=== PATIENT | female | born 1950 | race Caucasian/White ===

== ENCOUNTER 2024-06-07 06:47 | Day surgery (SDC) | payer MEDICARE, BC ==
[2024-06-07] MEDS ORDERED: Dexamethasone 4 MG/ML SDV IV ONE (06:48)
[2024-06-07] MEDS ORDERED: Sodium Chloride 0.9% 10 ML Syringe IV ONE (06:48)
[2024-06-07] MEDS ORDERED: Midazolam 1 MG/ML 2 ML SDV IV ONE (06:48)
[2024-06-07] MEDS ORDERED: Ondansetron 4 MG/2 ML SDV IVPUSH PRN (07:00)
[2024-06-07] MEDS ORDERED: Acetaminophen/Codeine 300-30 MG Tab PO PRN (07:00)
[2024-06-07] MEDS ORDERED: Acetaminophen 325 MG Tab PO PRN (07:00)
[2024-06-07] MEDS: Sodium Chloride 0.9% 10 ML Syringe FLUSH PRN (07:17)
[2024-06-07] MEDS: Proparacaine 0.5% Ophth Soln 15 ML Bottle EYELF ONE ×2 (07:26→08:18)
[2024-06-07] MEDS: Moxifloxacin 0.5% Ophth Soln 3 ML Bottle EYELF ONE (07:28)
[2024-06-07] MEDS: Povidone-Iodine 5% Sterile Ophth Soln 30 ML Bottle EYELF ONE ×2 (07:29→08:24)
[2024-06-07] MEDS: Tropicamide 1% Ophth Soln 15 ML Bottle EYELF ONE (07:30)
[2024-06-07] MEDS: Timolol Maleate 0.5% Ophth Soln 5 ML Bottle EYELF ONE (07:31)
[2024-06-07] MEDS: Phenylephrine 10% Ophth Soln 5 ML Bot EYELF ONE (07:31)
[2024-06-07] MEDS: Cataract Ophth Solution EYELF ONE (07:32)
[2024-06-07] MEDS: Diclofenac Sodium 0.1% Ophth Soln 5 ML Bottle EYELF ONE (08:18)
[2024-06-07] MEDS: Dexamethasone/Neomycin/Polymyxin B Ophth Oint 3.5 GM Tube EYELF ONE (08:18)
[2024-06-07] MEDS: Apraclonidine 0.5% Ophth Soln 5 ML Bot EYELF ONE (08:18)
[2024-06-07] MEDS: Lidocaine 1% 30 ML SDV ONE (08:26)
[2024-06-07] MEDS: Vancomycin 500 MG SDV EYELF ONE (08:27)
== END 2024-06-07 09:20 | disposition home or self-care (01) ==
LOC: DL.SDS 06:47
PROVIDERS: ATTEND Ophthalmology
DX: H25.812 Combined forms of age-related cataract, left eye (principal); E66.01 Morbid (severe) obesity due to excess calories; I10 Essential (primary) hypertension; Z87.891 Personal history of nicotine dependence; Z79.899 Other long term (current) drug therapy; Z88.5 Allergy status to narcotic agent; Z68.28 Body mass index [BMI] 28.0-28.9, adult
CPT/HCPCS: A9270-GY; J1100; J2250; J3370; J3490; V2788-GY

== ENCOUNTER 2024-06-21 06:46 | Day surgery (SDC) | payer MEDICARE, BC ==
[~2024-06-21 06:46] MED LIST: Proparacaine 0.5% Ophth Soln 15 ML Bottle ONE
[2024-06-21] MEDS ORDERED: Midazolam 1 MG/ML 2 ML SDV IV ONE (06:47)
[2024-06-21] MEDS ORDERED: Dexamethasone 4 MG/ML SDV IV ONE (06:47)
[2024-06-21] MEDS ORDERED: Sodium Chloride 0.9% 10 ML Syringe IV ONE (06:47)
[2024-06-21] MEDS ORDERED: Acetaminophen 325 MG Tab PO PRN (07:00)
[2024-06-21] MEDS ORDERED: Ondansetron 4 MG/2 ML SDV IVPUSH PRN (07:00)
[2024-06-21] MEDS ORDERED: Acetaminophen/Codeine 300-30 MG Tab PO PRN (07:00)
[2024-06-21] MEDS: Proparacaine 0.5% Ophth Soln 15 ML Bottle EYERT ONE ×3 (07:02→08:44)
[2024-06-21] MEDS: Povidone-Iodine 5% Sterile Ophth Soln 30 ML Bottle EYERT ONE ×2 (07:13→08:46)
[2024-06-21] MEDS ORDERED: Dexamethasone 4 MG/ML SDV ONE (07:13)
[2024-06-21] MEDS: Moxifloxacin 0.5% Ophth Soln 3 ML Bottle EYERT ONE (07:13)
[2024-06-21] MEDS: Tropicamide 1% Ophth Soln 15 ML Bottle EYERT ONE (07:14)
[2024-06-21] MEDS: Phenylephrine 10% Ophth Soln 5 ML Bot EYERT ONE (07:15)
[2024-06-21] MEDS: Timolol Maleate 0.5% Ophth Soln 5 ML Bottle EYERT ONE (07:16)
[2024-06-21] MEDS: Cataract Ophth Solution EYERT ONE (07:16)
[2024-06-21] MEDS: Sodium Chloride 0.9% 10 ML Syringe FLUSH PRN (07:18)
[2024-06-21] MEDS: Lidocaine 1% 30 ML SDV ONE (08:55)
[2024-06-21] MEDS: VANCOmycin 500 MG SDV EYERT ONE (08:55)
[2024-06-21] MEDS: Diclofenac Sodium 0.1% Ophth Soln 5 ML Bottle EYERT ONE (08:57)
[2024-06-21] MEDS: Apraclonidine 0.5% Ophth Soln 5 ML Bot EYERT ONE (09:00)
[2024-06-21] MEDS: Dexamethasone/Neomycin/Polymyxin B Ophth Oint 3.5 GM Tube EYERT ONE (09:01)
== END 2024-06-21 09:30 | disposition home or self-care (01) ==
LOC: DL.SDS 06:46
PROVIDERS: ATTEND Ophthalmology
DX: H25.811 Combined forms of age-related cataract, right eye (principal); I10 Essential (primary) hypertension; E78.5 Hyperlipidemia, unspecified; Z87.891 Personal history of nicotine dependence; Z79.899 Other long term (current) drug therapy
CPT/HCPCS: 66984; A9270; J3370; J1100; J2250; J3490